=== PATIENT | female | born 2000 | race Caucasian/White ===

== ENCOUNTER 2019-05-29 15:27 | Emergency (ER) | payer BC ==
[~2019-05-29] VITALS: Ht 160 cm; Wt 64.0 kg
[~2019-05-29 15:27] MED LIST: LORA-445 PO; SERT50TA PO
--- NOTE | 2019-05-29 15:45 | NUR ---
PT ANGEL SALGUERO, PER EMS REPORT PT CALLED FRIENDS AND STATED SHE WANTED TO END HER LIFE. SHE THEN TOOK 2.5MG OF ATIVAN AND APPROX 15 SHOTS OF RUM. PT WITH HX SI. PER FRIEND AT BEDSIDE, PT HAS HAD SA IN PAST WITH PILLS PT TO BP, CARD MONTIR, CONT PULSE OX
--- NOTE | 2019-05-29 16:48 | NUR ---
PT ASSISTED TO BR, PT WITH VERY UNSTEADY GAIT REQUIRING DIRECTION AND ASSISTANCE. UDS COLLECTED AND SENT, PT BACK TO [facility]. WILBERT RIZWAN IN TO [facility]
[2019-05-29 17:00] LABS: BASOPHILS # (AUTO) 0.03 x10^3/uL (0-0.3); BASOPHILS % (AUTO) 0 % (0-1); EOSINOPHILS # (AUTO) 0.12 x10^3/uL (0-0.8); EOSINOPHILS % (AUTO) 1 % (1-7); LYMPHOCYTES # (AUTO) 1.56 x10^3/uL (1-6.1); LYMPHOCYTES % (AUTO) 18 % (22-44); MD NO; MEAN CORPUSCULAR HEMOGLOBIN 32.5 pg (27.0-34.8); MEAN CORPUSCULAR HGB CONC 34.9 g/dL (32.4-35.8); MEAN CORPUSCULAR VOLUME 93.1 fL (80-100); MEAN PLATELET VOLUME 7.5 fL (7.4-10.4); MONOCYTES # (AUTO) 0.36 x10^3/uL (0-1.4); MONOCYTES % (AUTO) 4 % (2-9); NEUTROPHILS # (AUTO) 6.76 x10^3/uL (1.8-8.0); NEUTROPHILS % (AUTO) 77 % (42-75); PLATELET COUNT 379 x10^3/uL (130-400); RED BLOOD COUNT 4.63 x10^6/uL (3.82-5.3); RED CELL DISTRIBUTION WIDTH 11.5 % (9.6-15.2)
[2019-05-29 17:06] LABS: ALBUMIN 4.2 g/dL (3.4-5.0); ANION GAP 4 mmol/L (5-15); CALCIUM 8.6 mg/dL (8.5-10.1); CHLORIDE 114 mmol/L (98-107); CREATININE 0.84 mg/dL (0.55-1.02)
[2019-05-29 17:11] LABS: SALICYLATE LEVEL < 1.7 mg/dL (2.8-20.0)
--- NOTE | 2019-05-29 17:32 | NUR ---
PT MORIS WOULD LIKE TO BE UPDATED ON POC. TITI [phone]
[2019-05-29 17:39] LABS: AMPHETAMINE SCREEN, URINE Negative (Negative); BARBITURATE SCREEN, URINE Negative (Negative); BENZODIAZEPINE SCREEN, URINE Negative (Negative); CANNABINOID SCREEN, URINE Negative (Negative); COCAINE SCREEN, URINE Negative (Negative); METHADONE SCREEN, URINE Negative (Negative); OPIATE SCREEN, URINE Negative (Negative)
[2019-05-29 18:35] VITALS: BP 115/68
--- NOTE | 2019-05-29 18:35 | NUR ---
PT GIVEN MEAL TRAY, FRIEND AT BEDSIDE, NAD NOTED.
--- NOTE | 2019-05-29 19:56 | NUR ---
PT PROVIDED A SECOND MEAL FROM [employer]. PT STATES SHE IS A VEGAN. FRUITS AND NUTS PROVIDED.
--- NOTE | 2019-05-29 20:22 | NUR ---
PT BREATHALIZER 0.07. PT INSISTANT THAT SHE GOES HOME. PT PULLED OUT HER IV. PT STATES SHE IS NOT HAVING ANY SI AT THIS TIME. 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
--- NOTE | 2019-05-29 20:39 | NUR ---
PT INSTRUCTED ON ALCOHOL INTAKE IN MODERATION AND TO NEVER TAKE PERSCRIPTIONS PILLS AND ALCOHOL AT THE SAME TIME. PT CONTUNIES TO DENY SI AND IS ABULATORY WITH A STEADY GAIT TO THE BATHROOM AND DISCHARGE DESK. PT WITH NO QUESTIONS AT THIS TIME
== END 2019-05-29 20:42 | disposition home or self-care (01) ==
LOC: ED 19:00
DX: F32.9 Major depressive disorder, single episode, unspecified (principal); F10.120 Alcohol abuse with intoxication, uncomplicated; F42.8 Other obsessive-compulsive disorder; Y90.6 Blood alcohol level of 120-199 mg/100 ml
CPT/HCPCS: 36415; 80048; 80307; 82040; 84703; 85025; 99284